=== PATIENT | female | born 1980 | race Caucasian/White ===

== ENCOUNTER 2017-06-01 05:50 | Inpatient (IN) | payer BC ==
[2017-06-01] MEDS ORDERED: hydrOXYzine HCl 25 MG Tab PO ONE (07:30)
[2017-06-01] MEDS ORDERED: Ondansetron 4 MG/2 ML SDV IVPUSH PRN (11:11)
[2017-06-01] MEDS ORDERED: Lidocaine 1% 50 ML MDV INJECT ONE (11:11)
[2017-06-01] MEDS ORDERED: Nalbuphine 20 MG/1 ML Amp IVPUSH PRN (11:11)
[2017-06-01] MEDS ORDERED: Ampicillin 2 GM in Sodium Chloride 0.9% 100 ML IV ONE (11:11)
[2017-06-01] MEDS ORDERED: Sodium Chloride 0.9% 10 ML Syringe FLUSH PRN (11:11)
--- NOTE | 2017-06-01 11:36 | PCM.LDHP ---
L&D History of Present Illness - General Date of Service: 06/01/17 Admit Problem/Dx: Patient Status Order with Admit Dx/Problem 06/01/17 11:12 Patient Status [ADT] Routine Admission Diagnosis/Problem Admission Diagnosis/Problem Source of Information: Patient History Limitations: Reports: No Limitations - History of Present Illness Introduction:: History of present illness: Nan is a 37-year-old 1 para 0 white female at 39-2/7 weeks gestational age with an CUATE of 06/06/2017. who is evaluated early on the morning of 06/01/2017 with concerns about complaints and inability to sleep during the course of the night. She reports contractions ranging between 3 and 7 minutes, moderate in intensity and again severe enough to keep her from resting. On last evaluation in clinic her cervix was 1-2 cm, posterior, 80% effaced, -3 station, cephalic presentation. She is now nicole 3-5 minutes apart, moderate intensity. Her cervix has changed to 2 cm, 90% effaced, posterior position, -1 station, soft. Membranes are intact. She is admitted in active labor. course: Patient was initially seen for the on 11/29/2016 at 13 weeks gestational age. Her is dated by an early ultrasound done on 11/29/2016 placing her CUATE at 06/06/2017. Her last menstrual period was fairly definite with an onset of 09/05/2016 but this was a control pill.. Cycles every 28 days on control pills. Menarche age 15. She is seen on a very regular basis during the course of care her weight gain was from 118 pounds to 141 pounds for a 23 pound weight gain. Vital signs have been stable. Her fundal height growth has been within normal limits to just slightly below average. The patient plans to breast-feed. Her [facility] depression screening score 01/18/2017 with 0. She is group B strep positive. Has a history of supraventricular tachycardia which increases with stress and anxiety. This has not been a problem during the . Patient is desiring an epidural in labor and delivery. She is Rh-, she did have RhoGAM administered on 03/14/2017. Supporting her dates were performed on 11/29/2016, 01/18/2017 and 02/08/2017. Initially there was presence of a small choroid plexus cyst but this resolved with her last ultrasound. Patient had her flu shot and her T Deppe shot on 03/14. laboratory testing: Blood is O- with a negative antibiotic screen. First hemoglobin was 13.0 g/dL. Platelets then were 309,000. She is rubella immune. RPR is nonreactive. Urine culture at first visit was positive for Escherichia coli and patient was treated. Her hepatitis B surface antigen and her HIV assays were negative. Gonorrhea and chlamydia assays were both negative. Second trimester labs showed hemoglobin 11.4 g/dL at which time she was started on iron therapy in addition to her vitamin. Platelets were normal at 257,000. Diabetic screening test was normal at 107. Antibody screen at that time was negative patient received RhoGAM. Group B strep screen 2016 was positive. Allergies none Medications: 1. Ferrous sulfate one by mouth daily 2. tablets one by mouth daily Past medical history: 1. History of supraventricular tachycardia so since stress and anxiety. 2. Anxiety history Past surgical history: 1. Right breast benign 2016-benign Family history: mother and father are alive and well. No family history of bleeding, clotting, or anesthesia disorders. Social history patient is single, lives in [place]. She works at [employer] she does not use any significant amounts of alcohol, drugs or tobacco. Her significant other's Cale [place] Review of systems: In general patient has only one concern and that is the discomfort associated with her contractions today. Baby has been active. Skin: Negative Cardiovascular: No chest pain or exercise intolerance Respiratory: No shortness of breath or upper respiratory infection symptoms Breasts: Changes associated with . plans to breast-feed. GI: Negative : Increase in fundal height consistent with term Psychological: Some anxiety during pregnancymanageable Musculoskeletal: occasional edema otherwise negative Physical exam: On last evaluation clinic patient is well-developed, well- nourished, white female in no acute distress. Blood pressure was 120/78, weight was 141 with pregravid weight at 118. Her pregravid mass index was 17.3 and height is 5 feet 8 inches. Skin is warm dry without lesions. HEENT, neck and back within normal limits Lungs are clear with good breath sounds in all lung ponce. Cardiovascular exam shows regular rate and rhythm without murmurs. Breast exam is deferred abdomen done at first visit and found to be normal. Abdomen is protuberant with fundal height of 38 cm. Baby in vertex presentation. Cervix as above. Legs nontender and without edema. Assessment: 39-2/7 week intrauterine , early active labor with cervical change. 2. Risk factors in : Age 37 3. Patient desiring epidural for analgesia 4. Patient is rubella immune. 5. Patient plans to breast-feed 6. Patient is up-to-date regarding her flu shot. Plan: 1. Anticipate normal spontaneous vaginal delivery 2. Group B strep prophylaxis with ampicillin per protocol 3. Epidural for analgesia in labor and delivery 4. CBC this a.m. - Related Data Allergies/Adverse Reactions: Allergies Allergy/AdvReac Type Severity Reaction Status Date / Time No Known Allergies Allergy Verified 06/01/17 07:46 Past Medical History Cardiovascular History: Reports: Other (See Below) Other Cardiovascular History: SVT with anxiety CAMP BOSS History: Reports: Psychiatric History: Reports: Anxiety - Past Surgical History Female Surgical History: Reports: Other (See Below) Other Female Surgeries/Procedures: Right benign lumpectomy-2016 Oncologic Surgical History: Reports: Lumpectomy, Other (See Below) Other Oncologic Surgeries/Procedures: Benign lumpectomy in 2016 Social & Family History - Tobacco Use Smoking Status *Q: Never Smoker Second Hand Smoke Exposure: No - Recreational Drug Use Recreational Drug Use: No H&P Review of Systems - Review of Systems: Review Of Systems: See Below L&D Exam - Exam Exam: See Below - Vital Signs Vital Signs: Last Vital Signs Temp 36.8 C 06/01/17 06:07 Pulse 89 06/01/17 06:07 Resp 16 06/01/17 06:07 BP 120/89 06/01/17 06:07 Pulse Ox 100 06/01/17 06:07 Weight: 63.503 kg Problem List Initiated/Reviewed/Updated: Yes Orders Last 24hrs: Active Orders 24 hr Category Date Time Status Patient Status [ADT] Routine ADT 06/01/17 11:12 Ordered Activity as Tolerated [RC] PFP Care 06/01/17 11:12 Ordered Communication Order [RC] ASDIRECTED Care 06/01/17 11:12 Ordered Heart Tones [RC] ASDIRECTED Care 06/01/17 11:12 Ordered Notify Provider [RC] PFP Care 06/01/17 11:12 Ordered Notify Provider [RC] PRN Care 06/01/17 11:12 Ordered Peripheral IV Care [RC] . DIRECTED Care 06/01/17 11:12 Ordered Pump Management, Intrathecal [RC] ASDIRECTED Care 06/01/17 11:13 Ordered Vital Signs [RC] PER UNIT ROUTINE Care 06/01/17 11:12 Ordered Regular Diet [DIET] Diet 06/01/17 Breakfast Ordered Regular Diet [DIET] Diet 06/01/17 Lunch Active CBC W/O DIFF,HEMOGRAM [HEME] Stat Lab 06/01/17 11:11 Ordered Ampicillin 1 gm Med 06/01/17 11:15 Ordered Sodium Chloride 0.9% [Normal Saline] 100 ml IV Q4H Ampicillin 2 gm Med 06/01/17 11:11 Ordered Sodium Chloride 0.9% [Normal Saline] 100 ml IV ONETIME Lactated Ringers [Ringers, Lactated] 1,000 ml Med 06/01/17 11:15 Ordered IV ASDIRECTED Lidocaine 1% [Xylocaine 1%] Med 06/01/17 11:11 Once 10 ml INJECT ONETIME ONE Nalbuphine [Nubain] Med 06/01/17 11:11 Ordered 10 mg IVPUSH Q2H PRN Ondansetron [Zofran] Med 06/01/17 11:11 Ordered 4 mg IVPUSH Q4H PRN Sodium Chloride 0.9% [Saline Flush] Med 06/01/17 11:11 Ordered 10 ml FLUSH ASDIRECTED PRN Electronic Heart Tones Ext w TOCO [WOMSER] Oth 06/01/17 11:12 Ordered Routine Electronic Heart Tones Internal [WOMSER] Per Unit Oth 06/01/17 11:12 Ordered Routine Peripheral IV Insertion Adult [OM.PC] Routine Oth 06/01/17 11:12 Ordered Resuscitation Status Routine Resus Stat 06/01/17 11:11 Ordered
[2017-06-01] MEDS: Lactated Ringers 1,000 ML IV SCH ×5 (11:38→23:07)
[2017-06-01] MEDS ORDERED: ePHEDrine 50 MG/ML SDV IVPUSH PRN (12:05)
[2017-06-01] MEDS ORDERED: diphenhydrAMINE 50 MG/ML SDV IVPUSH PRN (12:05)
[2017-06-01] MEDS ORDERED: fentaNYL 100 MCG/2 ML SDV EPIDUR PRN (12:05)
[2017-06-01] MEDS ORDERED: Bupivacaine 0.25% 10 ML SDV ONE (12:15)
[2017-06-01] MEDS: Ampicillin 1 GM in Sodium Chloride 0.9% 100 ML IV SCH ×3 (15:14→23:11)
--- NOTE | 2017-06-01 16:32 | PCM.PREANE ---
Preanesthetic Assessment - Anesthesia/Transfusion/Family Hx Anesthesia History: No Prior Anesthesia Family History of Anesthesia Reaction: No Transfusion History: No Prior Transfusion(s) - Review of Systems General: No Symptoms Pulmonary: No Symptoms Cardiovascular: No Symptoms Gastrointestinal: No Symptoms Neurological: No Symptoms Other: Reports: None - Physical Assessment Pulse: 112 O2 Sat by Pulse Oximetry: 100 Respiratory Rate: 16 Blood Pressure: 100/68 Temperature: 36.3 C Vital Signs: Last Vital Signs Temp 36.8 C 06/01/17 06:07 Pulse 112 H 06/01/17 11:42 Resp 16 06/01/17 06:07 BP 100/68 06/01/17 11:42 Pulse Ox 100 06/01/17 06:07 Height: 1.73 m Weight: 63.503 kg ASA Class: 2 Mental Status: Alert & Oriented x3 Airway Class: Mallampati = 1 Dentition: Reports: Normal Dentition Thyro-Mental Finger Breadths: 3 Mouth Opening Finger Breadths: 3 ROM/Head Extension: Full Lungs: Clear to Auscultation, Normal Respiratory Effort Cardiovascular: Regular Rate, Regular Rhythm, No Murmurs - Lab Values: Laboratory Last Values WBC 14.09 K/mm3 (3.98-10.04) H 06/01/17 11:30 RBC 4.37 M/mm3 (3.98-5.22) 06/01/17 11:30 Hgb 12.8 gm/L (11.2-15.7) 06/01/17 11:30 Hct 37.5 % (34.1-44.9) 06/01/17 11:30 MCV 85.8 fl (79.4-94.8) 06/01/17 11:30 MCH 29.3 pg (25.6-32.2) 06/01/17 11:30 MCHC 34.1 g/dl (32.2-35.5) 06/01/17 11:30 RDW Std Deviation 39.3 fL (36.4-46.3) 06/01/17 11:30 Plt Count 187 K/mm3 (182-369) 06/01/17 11:30 MPV 11.1 fl (9.4-12.3) 06/01/17 11:30 - Allergies Allergies/Adverse Reactions: Allergies Allergy/AdvReac Type Severity Reaction Status Date / Time No Known Allergies Allergy Verified 06/01/17 07:46 - Acknowledgements Anesthesia Type Planned: Epidural Pt an Appropriate Candidate for the Planned Anesthesia: Yes Alternatives and Risks of Anesthesia Discussed w Pt/Guardian: Yes Pt/Guardian Understands and Agrees with Anesthesia Plan: Yes PreAnesthesia Questionnaire Cardiovascular History: Reports: Other (See Below) Other Cardiovascular History: SVT with anxiety Gastrointestinal History: Reports: GERD PATENT SOLICITOR History: Reports: Psychiatric History: Reports: Anxiety - Past Surgical History Female Surgical History: Reports: Other (See Below) Other Female Surgeries/Procedures: Right benign lumpectomy-2016 Oncologic Surgical History: Reports: Lumpectomy, Other (See Below) Other Oncologic Surgeries/Procedures: Benign lumpectomy in 2016 - SUBSTANCE USE Smoking Status *Q: Never Smoker Second Hand Smoke Exposure: No Recreational Drug Use History: No - CURRENT (IN HOUSE) MEDS Current Meds: Current Medications Diphenhydramine HCl (Benadryl) 25 mg IVPUSH Q6H PRN PRN Reason: Itching Ephedrine Sulfate (Ephedrine Sulfate) 5 mg IVPUSH ASDIRECTED PRN PRN Reason: HYPOTENTSION Fentanyl (Sublimaze) 100 mcg EPIDUR Q3H PRN PRN Reason: PAIN Last Admin: 06/01/17 16:25 Dose: 100 mcg Fentanyl/Bupivacaine HCl (Fentanyl/Bupivacaine/Ns 2 Mcg-0.125% 100 Ml) 100 ml EPIDUR ASDIRECTED [facility] Lactated Ringer's (Ringers, Lactated) 1,000 mls @ 100 mls/hr IV ASDIRECTED [facility] Last Admin: 06/01/17 11:38 Dose: 100 mls/hr Ampicillin Sodium 1 gm/ Sodium (Chloride) 100 mls @ 200 mls/hr IV Q4H [facility] Last Admin: 06/01/17 15:14 Dose: 200 mls/hr Nalbuphine HCl (Nubain) 10 mg IVPUSH Q2H PRN PRN Reason: Pain (moderate 4-6) Ondansetron HCl (Zofran) 4 mg IVPUSH Q4H PRN PRN Reason: Nausea/Vomiting Sodium Chloride (Saline Flush) 10 ml FLUSH ASDIRECTED PRN PRN Reason: Keep Vein Open Discontinued Medications Hydroxyzine HCl (Atarax) 50 mg PO .ONETIME ONE Stop: 06/01/17 07:31 Last Admin: 06/01/17 07:30 Dose: 50 mg Ampicillin Sodium 2 gm/ Sodium (Chloride) 100 mls @ 200 mls/hr IV ONETIME ONE Stop: 06/01/17 11:40 Last Admin: 06/01/17 11:38 Dose: 200 mls/hr Lidocaine HCl (Xylocaine 1%) 10 ml INJECT ONETIME ONE Stop: 06/01/17 11:12
[2017-06-01] MEDS: Acetaminophen 325 MG Tab PO PRN (20:45)
[2017-06-01] MEDS ORDERED: Oxytocin/Lactated Ringers 10 UNIT/1,000 ML BAG IV SCH (20:45)
[2017-06-01] MEDS ORDERED: Sodium Chloride 0.9% 1,000 ML IRR PRN (22:45)
[2017-06-01] MEDS ORDERED: Sodium Chloride 0.9% 1,000 ML ONE (22:52)
[2017-06-01] MEDS: Bupivacaine/fentaNYL/NS 100 ML Bag EPIDUR SCH (23:53)
[2017-06-02] MEDS: Lactated Ringers 1,000 ML IV SCH ×2 (01:43→06:22)
[2017-06-02] MEDS: Acetaminophen 325 MG Tab PO PRN ×2 (03:11→14:52)
[2017-06-02] MEDS: Ampicillin 1 GM in Sodium Chloride 0.9% 100 ML IV SCH ×4 (03:12→20:00)
[2017-06-02] MEDS: Bupivacaine/fentaNYL/NS 100 ML Bag EPIDUR SCH (05:34)
[2017-06-02] MEDS ORDERED: Ibuprofen 600 MG Tab PO PRN (09:24)
[2017-06-02] MEDS ORDERED: Witch Hazel Medicated Pads 100/Jar TOP PRN ×2 (09:25→16:00)
[2017-06-02] MEDS ORDERED: Benzocaine/Menthol 20%-0.5% Spray 56 GM Canister TOP PRN ×2 (09:26→16:00)
[2017-06-02] MEDS ORDERED: Docusate Sodium 100 MG Cap PO PRN (09:26)
[2017-06-02] MEDS ORDERED: Lanolin 100% Cream 7 GM Tube TOP PRN (16:00)
--- NOTE | 2017-06-02 16:10 | PCM.SN ---
- Free Text/Narrative Note: Delivery note: Nan is a 37-year-old 1 now para 1001 white female who was admitted yesterday at 39-2/7 weeks gestational age with an CUATE of 06/06/2017 in active labor. She was 2 cm, 90% effaced with bulging bag of lomeli. She made cervical change from for several hours. She is group B strep positive and therefore was treated with prophylaxis with ampicillin protocol. Made very slow progress throughout the course of the next 20 hours. She had intermittent Pitocin augmentation. Had variable decelerations which were significant. Amnioinfusion was performed with normal saline. This helped resolve the decelerations and heart tones recovered. She also had a moderate temperature during the course of the labor. She received at least 3 doses of ampicillin because of her group B strep positive status. Late in the course of labor mild meconium stained amniotic fluid was noted. For this reason Dr. Junior , detail drafter, was at the time of delivery. She achieved complete cervical dilation by approximately 0615 hrs. on 06/02/2017. She pushed for approximately the next 2 hours and 45 minutes and at 0901 hrs. she delivered a viable, mane, 3110 g (6 pound 13.7 ounce), 20 inch long female infant with Apgars of 9 and 9. She delivered via vacuum extraction delivery for maternal fatigue. Delivery occurred within one contraction of vacuum extraction placement. Because of meconium stained amniotic fluid cord was clamped 2. It was then cut by the baby's father and baby was handed off to the attending detail drafter Dr. Radha Morgan. Cord blood was obtained. The umbilical cord had 3 vessels present within it. Patient is noted to have a second-degree laceration of the perineum and to bilateral sulcus lacerations of the vagina. Each of these sulcus tears were closed individually with 3-0 Monocryl in a running stitch. The second-degree laceration was then closed separately with 3-0 Monocryl in a routine fashion. The placenta delivered in a Samson presentation. It appeared intact, complete and was discarded per patient desire. Estimated blood loss: 100 mL. Condition: Good
[2017-06-02] MEDS: Ibuprofen 600 MG Tab PO PRN (17:47)
--- NOTE | 2017-06-03 07:24 | PCM48HPAN ---
Post Anesthesia Note - EVALUATION WITHIN 48HRS OF ANESTHETIC Vital Signs in Normal Range: Yes Patient Participated in Evaluation: Yes Respiratory Function Stable: Yes Airway Patent: Yes Cardiovascular Function Stable: Yes Hydration Status Stable: Yes Pain Control Satisfactory: Yes Nausea and Vomiting Control Satisfactory: Yes Mental Status Recovered: Yes
[2017-06-03] MEDS: Prenatal Multivitamin with Calcium/Folic Acid/Iron Tab PO SCH (08:12)
[2017-06-03] MEDS: Acetaminophen 325 MG Tab PO PRN ×3 (08:12→20:13)
--- NOTE | 2017-06-03 11:52 | PCM.SN ---
- Free Text/Narrative Note: General patient is doing well today. She is sore from pushing. She has minimal lochia. Vital signs are stable patient has been afebrile. Abdomen is flat, soft, nontender with uterus at umbilicus, firm but nontender. Legs are nontender with only minimal edema. White count is 15.65. Hemoglobin is 8.3, platelets are 150,000 Assessment/plan: 1. day 1 doing well. 2. Anemia secondary to blood loss of delivery and 3. Group B strep positive status. Baby's is staying for next today. Patient wishes to stay also.
[2017-06-03] MEDS: Ibuprofen 600 MG Tab PO PRN ×3 (12:10→16:50)
[2017-06-04] MEDS: Ibuprofen 600 MG Tab PO PRN (04:22)
[2017-06-04] MEDS: Acetaminophen 325 MG Tab PO PRN (07:43)
[2017-06-04] MEDS: Prenatal Multivitamin with Calcium/Folic Acid/Iron Tab PO SCH ×2 (07:43→10:21)
--- NOTE | 2017-06-04 08:18 | PCM.DCSUM1 ---
Discharge Summary - Discharge Data Discharge Date: 06/04/17 Discharge Disposition: Home, Self-Care 01 Condition: Good - Patient Summary/Data Hospital Course: Nan is a 37-year-old 1 now para 1001 white female who was admitted yesterday at 39-2/7 weeks gestational age with an CUATE of 06/06/2017 in active labor. She was 2 cm, 90% effaced with bulging bag of lomeli. She made cervical change from for several hours. She is group B strep positive and therefore was treated with prophylaxis with ampicillin protocol. Made very slow progress throughout the course of the next 20 hours. She had intermittent Pitocin augmentation. Had variable decelerations which were significant. Amnioinfusion was performed with normal saline. This helped resolve the decelerations and heart tones recovered. She also had a moderate temperature during the course of the labor. She received at least 3 doses of ampicillin because of her group B strep positive status. Late in the course of labor mild meconium stained amniotic fluid was noted. For this reason Dr. Junior, spanisher, was at the time of delivery. She achieved complete cervical dilation by approximately 0615 hrs. on 06/02/2017. She pushed for approximately the next 2 hours and 45 minutes and at 0901 hrs. she delivered a viable, mane, 3110 g (6 pound 13.7 ounce), 20 inch long female with Apgars of 9 and 9. She delivered via vacuum extraction delivery for maternal fatigue. Delivery occurred within one contraction of vacuum extraction placement. Because of meconium stained amniotic fluid cord was clamped 2. It was then cut by the baby 's father and baby was handed off to the attending spanisher Dr. Junior. Cord blood was obtained. The umbilical cord had 3 vessels present within it. Patient is noted to have a second-degree laceration of the perineum and to bilateral sulcus lacerations of the vagina. Each of these sulcus tears were closed individually with 3-0 Monocryl in a running stitch. The second-degree laceration was then closed separately with 3-0 Monocryl in a routine fashion. The placenta delivered in a Samson presentation. It appeared intact, complete and was discarded per patient desire. Discharged day number one. - Patient Instructions Diet: Usual Diet as Tolerated Activity: No Strenuous Activities Driving: May Drive Today Showering/Bathing: May Shower Notify Provider of: Fever, Increased Pain, Swelling and Redness, Drainage, Nausea and/or Vomiting - Discharge Plan Patient Handouts: Home Care Instructions for Mom, Vaginal Delivery, Care After , Pelvic Rest, Care After Vaginal Delivery - Patient Data Vitals - Most Recent: Last Vital Signs Temp 36.6 C 06/04/17 04:00 Pulse 76 06/04/17 04:36 Resp 17 06/04/17 04:36 BP 124/78 06/04/17 04:36 Pulse Ox 99 06/04/17 04:36 Weight - Most Recent: 63.503 kg I&O - Last 24 hours: Intake & Output 06/03/17 06/04/17 06/04/17 22:59 06:59 14:59 Intake Total 0 Balance 0 Med Orders - Current: Current Medications Acetaminophen (Tylenol) 650 mg PO Q4H PRN PRN Reason: mild pain or fever Last Admin: 06/04/17 07:43 Dose: 650 mg Benzocaine/Menthol (Dermoplast Pain Relief [place]) 0 gm TOP ASDIRECTED PRN PRN Reason: Perineal Comfort Measure Emollient Ointment (Lansinoh Hpa) 0 gm TOP ASDIRECTED PRN PRN Reason: Sore Nipples Ibuprofen (Motrin) 600 mg PO Q4H PRN PRN Reason: Mild pain or fever Last Admin: 06/04/17 04:22 Dose: 600 mg Prenat Multivit/Bosque/Iron/Folic Ac ( Plus Iron) 1 each PO DAILY BERNARDO Last Admin: 06/04/17 07:43 Dose: 1 each Witch Jagruti (Tucks) 1 pad TOP ASDIRECTED PRN PRN Reason: Hemorrhoid pain Discontinued Medications Acetaminophen (Tylenol) 650 mg PO Q4H PRN PRN Reason: Fever Greater Than 101 Last Admin: 06/02/17 14:52 Dose: 650 mg Benzocaine/Menthol (Dermoplast Pain Relief [place]) 56 gm TOP ASDIRECTED PRN PRN Reason: Perineal Comfort Measure Last Admin: 06/02/17 14:37 Dose: 1 can Bupivacaine HCl (Sensorcaine-Mpf 0.25%) 10 ml .ROUTE .STK-MED ONE Stop: 06/01/17 12:16 Diphenhydramine HCl (Benadryl) 25 mg IVPUSH Q6H PRN PRN Reason: Itching Docusate Sodium (Colace) 100 mg PO BID PRN PRN Reason: Constipation Last Admin: 06/02/17 14:52 Dose: 100 mg Ephedrine Sulfate (Ephedrine Sulfate) 5 mg IVPUSH ASDIRECTED PRN PRN Reason: HYPOTENTSION Fentanyl (Sublimaze) 100 mcg EPIDUR Q3H PRN PRN Reason: PAIN Last Admin: 06/01/17 16:25 Dose: 100 mcg Fentanyl/Bupivacaine HCl (Fentanyl/Bupivacaine/Ns 2 Mcg-0.125% 100 Ml) 100 ml EPIDUR ASDIRECTED [facility] Last Admin: 06/02/17 05:34 Dose: 100 ml Hydroxyzine HCl (Atarax) 50 mg PO .ONETIME ONE Stop: 06/01/17 07:31 Last Admin: 06/01/17 07:30 Dose: 50 mg Ampicillin Sodium 2 gm/ Sodium (Chloride) 100 mls @ 200 mls/hr IV ONETIME ONE Stop: 06/01/17 11:40 Last Admin: 06/01/17 11:38 Dose: 200 mls/hr Lactated Ringer's (Ringers, Lactated) 1,000 mls @ 100 mls/hr IV ASDIRECTED [facility] Last Admin: 06/02/17 06:22 Dose: 100 mls/hr Ampicillin Sodium 1 gm/ Sodium (Chloride) 100 mls @ 200 mls/hr IV Q4H [facility] Last Admin: 06/02/17 20:00 Dose: Not Given Oxytocin 10 unit/ Lactated (Ringer's) 1,001 mls @ 12.01 mls/hr IV TITRATE BERNARDO; 2 MUNITS/MIN PRN Reason: Protocol Oxytocin/Lactated Ringer's (Pitocin In Lr 10 Units/1,000 Ml) 10 unit in 1,000 mls @ 12 mls/hr IV TITRATE EBRNARDO; 2 MUNITS/MIN PRN Reason: Protocol Last Titration: 06/02/17 03:18 Dose: 0 munits/min, 0 mls/hr Sodium Chloride (Sodium Chloride 0.9%) 1,000 mls @ 100 mls/hr IRR ASDIRECTED PRN PRN Reason: Amnioinfusion Last Infusion: 06/01/17 23:06 Dose: 200 mls/hr Sodium Chloride (Normal Saline) Confirm Administered Dose 1,000 mls @ as directed .ROUTE .STK-MED ONE Stop: 06/01/17 22:53 Last Admin: 06/01/17 23:05 Dose: Not Given Ibuprofen (Motrin) 600 mg PO Q6H PRN PRN Reason: Pain Last Admin: 06/02/17 10:08 Dose: 600 mg Lidocaine HCl (Xylocaine 1%) 10 ml INJECT ONETIME ONE Stop: 06/01/17 11:12 Last Admin: 06/02/17 20:01 Dose: Not Given Nalbuphine HCl (Nubain) 10 mg IVPUSH Q2H PRN PRN Reason: Pain (moderate 4-6) Ondansetron HCl (Zofran) 4 mg IVPUSH Q4H PRN PRN Reason: Nausea/Vomiting Sodium Chloride (Saline Flush) 10 ml FLUSH ASDIRECTED PRN PRN Reason: Keep Vein Open Karan Chand (Tucks) 1 pad TOP ASDIRECTED PRN PRN Reason: Perineal Comfort Measure Last Admin: 06/02/17 14:37 Dose: 1 jar *Q Meaningful Use (DIS) - VTE *Q VTE Criteria *Q: - Stroke *Q Stroke Criteria *Q: - AMI *Q AMI Criteria *Q:
== END 2017-06-04 09:50 | disposition home or self-care (01) | DRG 560 ==
LOC: JD.OB 05:50 → JD.OBCHECK 05:50 → JD.OB 11:12 → OBSVTOIN 06-02 09:01
PROVIDERS: ADMIT Obstetrics & Gynecology; ATTEND Obstetrics & Gynecology
PROC: 10D07Z6 Extraction of Products of Conception, Vacuum, Via Natural or Artificial Opening (ICD-10-PCS; principal; 2017-06-02)
PROC: 0KQM0ZZ Repair Perineum Muscle, Open Approach (ICD-10-PCS; 2017-06-02)
PROC: 10907ZC Drainage of Amniotic Fluid, Therapeutic from Products of Conception, Via Natural or Artificial Opening (ICD-10-PCS; 2017-06-02)
PROC: 00HU33Z Insertion of Infusion Device into Spinal Canal, Percutaneous Approach (ICD-10-PCS; 2017-06-02)
PROC: 3E0R3BZ Introduction of Anesthetic Agent into Spinal Canal, Percutaneous Approach (ICD-10-PCS; 2017-06-02)
PROC: 3E0E7GC Introduction of Other Therapeutic Substance into Products of Conception, Via Natural or Artificial Opening (ICD-10-PCS; 2017-06-02)
DX: O99.824 Streptococcus B carrier state complicating childbirth (principal); Z3A.39 39 weeks gestation of pregnancy; Z37.0 Single live birth; O77.0 Labor and delivery complicated by meconium in amniotic fluid; O70.1 Second degree perineal laceration during delivery; O76 Abnormality in fetal heart rate and rhythm complicating labor and delivery; O75.81 Maternal exhaustion complicating labor and delivery; O75.2 Pyrexia during labor, not elsewhere classified; O90.81 Anemia of the puerperium
CPT/HCPCS: 36415; 51701; 51702; 59300; 59409; 85027; 85461; 86850; 86870; 86900; 86901; A9270-GY; J0290; J2590; J2790; J3010; J7030; J7120

== ENCOUNTER 2018-05-22 08:45 | Emergency (ER) | payer BC ==
[2018-05-22] MEDS ORDERED: Sodium Chloride 0.9% 1,000 ML IV STA (09:29)
[2018-05-22] MEDS ORDERED: Sodium Chloride 0.9% 10 ML Syringe FLUSH PRN (09:29)
[2018-05-22] MEDS ORDERED: Ondansetron 4 MG/2 ML SDV IVPUSH ONE (09:29)
--- NOTE | 2018-05-22 09:41 | EDM.PDOC ---
ED HPI GENERAL MEDICAL PROBLEM - General Chief Complaint: Chest Pain Stated Complaint: CHEST PAINS X 2 DAYS Time Seen by Provider: 05/22/18 09:12 Source of Information: Reports: Patient, Family History Limitations: Reports: No Limitations - History of Present Illness INITIAL COMMENTS - FREE TEXT/NARRATIVE: The patient presents with chest pain, nausea and vomiting. The chest pain started 2 days ago. She says it is like a heaviness or pressure in the mid chest. The pain radiates to her left upper back. The pain is made worse with deep breathing. She has no shortness of breath with it. She has no fever, chills or cough. She has no history of PE or DVT. She has no swelling or pain in her legs. This morning at 2am she started having nausea and vomiting. She has vomited multiple times. She has a history of SVT but it has not bothered her in the past. He father has a history of A-fib. She did not eat any bad food and she has not been around anyone who is sick. She denies abdominal pain , dysuria or diarrhea. Onset: Gradual Duration: Day(s): (2) Location: Reports: Chest Quality: Reports: Pressure Severity: Moderate Improves with: Reports: None Worsens with: Reports: None Associated Symptoms: Reports: Chest Pain, Nausea/Vomiting. Denies: Cough, Fever /Chills, Headaches, Shortness of Breath Treatments VESSEL MANAGER: Reports: Acetaminophen, Other Medication(s) Middle Chest Pain Score (Numeric/FACES): 6 Left Upper Back Pain Score (Numeric/FACES): 8 - Related Data Allergies Allergy/AdvReac Type Severity Reaction Status Date / Time No Known Allergies Allergy Verified 05/22/18 09:00 Home Meds: Home Meds Norgestrel-Ethinyl Estradiol [Elinest-28 Tablet] 1 tab PO DAILY 05/22/18 [ History] Ondansetron [Zofran ODT] 4 mg PO Q6H PRN #20 tab.dis 05/22/18 [Rx] Past Medical History Cardiovascular History: Reports: Other (See Below) Other Cardiovascular History: SVT with anxiety Gastrointestinal History: Reports: GERD 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: Psychiatric History: Reports: Anxiety - Infectious Disease History Infectious Disease History: Reports: Mononucleosis - Past Surgical History HEENT Surgical History: Reports: Oral Surgery Female Surgical History: Reports: Other (See Below) Other Female Surgeries/Procedures: Right benign lumpectomy-2016 Oncologic Surgical History: Reports: Lumpectomy, Other (See Below) Other Oncologic Surgeries/Procedures: Benign lumpectomy in 2016 Social & Family History - Family History Cardiac: Reports: Prior Cardiac Arrest - Tobacco Use Smoking Status *Q: Never Smoker Second Hand Smoke Exposure: No - Caffeine Use Caffeine Use: Reports: Coffee - Recreational Drug Use Recreational Drug Use: No ED ROS GENERAL - Review of Systems Review Of Systems: See Below Constitutional: Reports: No Symptoms HEENT: Reports: No Symptoms Respiratory: Reports: No Symptoms Cardiovascular: Reports: Chest Pain Endocrine: Reports: No Symptoms GI/Abdominal: Reports: Nausea, Vomiting. Denies: Abdominal Pain ED EXAM, GENERAL - Physical Exam Exam: See Below Exam Limited By: No Limitations General Appearance: Alert, No Apparent Distress Ears: Normal External Exam Nose: Normal Inspection Head: Atraumatic, Normocephalic Neck: Normal Inspection Respiratory/Chest: No Respiratory Distress, Lungs Clear, Normal Breath Sounds Cardiovascular: Regular Rate, Rhythm, No Edema, No Murmur GI/Abdominal: Soft, Non-Tender, No Organomegaly, No Mass Back Exam: Normal Inspection Extremities: Normal Inspection EKG INTERPRETATION EKG Date: 05/22/18 Time: 08:55 Rhythm: Other (sinus tachycardia) Rate (Beats/Min): 100 [place]: Normal P-Wave: Present QRS: Normal ST-T: Normal QT: Normal Course - Vital Signs Last Recorded V/S: Last Vital Signs Temp 98.6 F 05/22/18 08:54 Pulse 100 05/22/18 08:54 Resp 17 05/22/18 08:54 BP 135/99 H 05/22/18 08:54 Pulse Ox - Orders/Labs/Meds Orders: Active Orders 24 hr Category Date Time Status Peripheral IV Care [RC] . DIRECTED Care 05/22/18 09:29 Active UA W/MICROSCOPIC [URIN] Stat Lab 05/22/18 09:29 Ordered Sodium Chloride 0.9% [Saline Flush] Med 05/22/18 09:29 Active 10 ml FLUSH ASDIRECTED PRN ED Antiemetic Medication Reflex [OM.PC] Stat Oth 05/22/18 09:29 Ordered Peripheral IV Insertion Adult [OM.PC] Stat Oth 05/22/18 09:29 Ordered Medication Orders Sodium Chloride (Saline Flush) 10 ml FLUSH ASDIRECTED PRN PRN Reason: Keep Vein Open Last Admin: 05/22/18 09:40 Dose: 10 ml Labs: Laboratory Tests 05/22/18 05/22/18 05/22/18 Range/Units 09:40 09:40 09:40 WBC 6.88 (3.98-10.04) K/mm3 RBC 4.97 (3.98-5.22) M/mm3 Hgb 14.6 (11.2-15.7) gm/L Hct 43.6 (34.1-44.9) % MCV 87.7 (79.4-94.8) fl MCH 29.4 (25.6-32.2) pg MCHC 33.5 (32.2-35.5) g/dl RDW Std Deviation 39.3 (36.4-46.3) fL Plt Count 263 (182-369) K/mm3 MPV 10.4 (9.4-12.3) fl Neut % (Auto) 92.2 H (34.0-71.1) % Lymph % (Auto) 3.9 L (19.3-51.7) % [place] % (Auto) 3.8 L (4.7-12.5) % Eos % (Auto) 0 L (0.7-5.8) Baso % (Auto) 0.0 L (0.1-1.2) % Neut # (Auto) 6.34 H (1.56-6.13) K/mm3 Lymph # (Auto) 0.27 L (1.18-3.74) K/mm3 [place] # (Auto) 0.26 (0.24-0.36) K/mm3 Eos # (Auto) 0.00 L (0.04-0.36) K/mm3 Baso # (Auto) 0.00 L (0.01-0.08) K/mm3 Manual Slide Review Abnormal smear D-Dimer, Quantitative 0.43 (0.19-0.50) mg/L Sodium 144 (136-145) mEq/L Potassium 3.9 (3.5-5.1) mEq/L Chloride 107 (98-107) mEq/L Carbon Dioxide 26 (21-32) mEq/L Anion Gap 14.9 (5-15) BUN 16 (7-18) mg/dL Creatinine 0.9 (0.55-1.02) mg/dL Est Cr Clr Drug Dosing 74.25 mL/min Estimated GFR (MDRD) > 60 (>60) mL/min BUN/Creatinine Ratio 17.8 (14-18) Glucose 91 (74-106) mg/dL Calcium 9.0 (8.5-10.1) mg/dL Total Bilirubin 1.9 H (0.2-1.0) mg/dL AST 15 (15-37) U/L ALT 16 (14-59) U/L Alkaline Phosphatase 52 (46-116) U/L Troponin I < 0.017 (0.00-0.056) ng/mL Total Protein 7.8 (6.4-8.2) g/dl Albumin 4.1 (3.4-5.0) g/dl Globulin 3.7 gm/dL Albumin/Globulin Ratio 1.1 (1-2) HCG, Qual (NEGATIVE) 05/22/18 Range/Units 09:40 WBC (3.98-10.04) K/mm3 RBC (3.98-5.22) M/mm3 Hgb (11.2-15.7) gm/L Hct (34.1-44.9) % MCV (79.4-94.8) fl MCH (25.6-32.2) pg MCHC (32.2-35.5) g/dl RDW Std Deviation (36.4-46.3) fL Plt Count (182-369) K/mm3 MPV (9.4-12.3) fl Neut % (Auto) (34.0-71.1) % Lymph % (Auto) (19.3-51.7) % [place] % (Auto) (4.7-12.5) % Eos % (Auto) (0.7-5.8) Baso % (Auto) (0.1-1.2) % Neut # (Auto) (1.56-6.13) K/mm3 Lymph # (Auto) (1.18-3.74) K/mm3 [place] # (Auto) (0.24-0.36) K/mm3 Eos # (Auto) (0.04-0.36) K/mm3 Baso # (Auto) (0.01-0.08) K/mm3 Manual Slide Review D-Dimer, Quantitative (0.19-0.50) mg/L Sodium (136-145) mEq/L Potassium (3.5-5.1) mEq/L Chloride (98-107) mEq/L Carbon Dioxide (21-32) mEq/L Anion Gap (5-15) BUN (7-18) mg/dL Creatinine (0.55-1.02) mg/dL Est Cr Clr Drug Dosing mL/min Estimated GFR (MDRD) (>60) mL/min BUN/Creatinine Ratio (14-18) Glucose (74-106) mg/dL Calcium (8.5-10.1) mg/dL Total Bilirubin (0.2-1.0) mg/dL AST (15-37) U/L ALT (14-59) U/L Alkaline Phosphatase (46-116) U/L Troponin I (0.00-0.056) ng/mL Total Protein (6.4-8.2) g/dl Albumin (3.4-5.0) g/dl Globulin gm/dL Albumin/Globulin Ratio (1-2) HCG, Qual Negative (NEGATIVE) Meds: Medications Generic Name Dose Route Start Last Admin Trade Name Freq PRN Reason Stop Dose Admin Sodium Chloride 10 ml 05/22/18 09:29 05/22/18 09:40 Saline Flush FLUSH 10 ml ASDIRECTED PRN Administration Keep Vein Open Discontinued Medications Generic Name Dose Route Start Last Admin Trade Name Freq PRN Reason Stop Dose Admin Sodium Chloride 1,000 mls @ 1,000 mls/hr 05/22/18 09:29 05/22/18 09:44 Normal Saline IV 05/22/18 10:28 1,000 mls/hr .BOLUS STA Administration Ondansetron HCl 4 mg 05/22/18 09:29 05/22/18 09:41 Zofran IVPUSH 05/22/18 09:30 4 mg ONETIME ONE Administration - Re-Assessments/Exams Free Text/Narrative Re-Assessment/Exam: 05/22/18 09:44 I ordered an IV NS 1L bolus, zofran 4mg IV, labs, EKG, UA and a CXR. Her EKG shows a sinus tachycardia with no acute changes. 05/22/18 11:03 Her CXR looks good. Her CBC looks good. Her D-dimer is negative. Her CMP is normal. Her troponin is negative. Her HCG is negative. She feels better. I will get her on some zofran. Departure - Departure Time of Disposition: 11:05 Disposition: Home, Self-Care 01 Condition: Good Clinical Impression: Chest pain Qualifiers: Chest pain type: unspecified Qualified Code(s): R07.9 - Chest pain, unspecified Thoracic back pain Qualifiers: Chronicity: acute Back pain laterality: left Qualified Code(s): M54.6 - Pain in thoracic spine Nausea & vomiting Qualifiers: Vomiting type: unspecified Vomiting Intractability: non-intractable Qualified Code(s): R11.2 - Nausea with vomiting, unspecified Prescriptions: Ondansetron [Zofran ODT] 4 mg PO Q6H PRN #20 tab.dis PRN Reason: Nausea\vomiting Referrals: PCP,None [Primary Care Provider] - Amy Morley COLD ROLL OPERATOR [ED Midlevel Provider] - 1 Week Forms: ED Department Discharge Additional Instructions: Drink plenty of fluids. Take the zofran every 6 hours as needed for nausea and vomiting. Take tylenol or motrin for pain. Please return if you are worse. - My Orders Last 24 Hours: My Active Orders 05/22/18 09:29 Peripheral IV Care [RC] . DIRECTED UA W/MICROSCOPIC [URIN] Stat Sodium Chloride 0.9% [Saline Flush] 10 ml FLUSH ASDIRECTED PRN ED Antiemetic Medication Reflex [OM.PC] Stat Peripheral IV Insertion Adult [OM.PC] Stat - Assessment/Plan Last 24 Hours: My Active Orders 05/22/18 09:29 Peripheral IV Care [RC] . DIRECTED UA W/MICROSCOPIC [URIN] Stat Sodium Chloride 0.9% [Saline Flush] 10 ml FLUSH ASDIRECTED PRN ED Antiemetic Medication Reflex [OM.PC] Stat Peripheral IV Insertion Adult [OM.PC] Stat
--- NOTE | 2018-05-22 10:23 | CR ---
Chest: Frontal view of the chest was obtained. Comparison: Prior chest x-ray of 10/24/15. Heart size and mediastinum are normal. Lungs are clear. Bony structures appear grossly intact. Impression: 1. Nothing acute is appreciated on frontal chest x-ray. Diagnostic code #1
== END 2018-05-22 11:29 | disposition home or self-care (01) ==
LOC: JD.ED 08:45
DX: R07.9 Chest pain, unspecified (principal); R11.2 Nausea with vomiting, unspecified; M54.6 Pain in thoracic spine; Z79.899 Other long term (current) drug therapy
CPT/HCPCS: 36415; 71045; 80053; 84484; 84703; 85025; 85379; 93005; 96361; 96374; 99285; J2405; J7040; 93010; 99284